=== PATIENT | female | born 1995 | race Caucasian/White ===

== ENCOUNTER 2016-08-07 20:39 | Observation (INO) | payer OTHER ==
[2016-08-07 21:06] VITALS: RESP 18
--- NOTE | 2016-08-07 21:26 | ED ---
Abdominal Pain HPI - General Chief Complaint: Abdominal Pain Stated Complaint: 18 weeks pg/contractions Time Seen by Provider: 08/07/16 21:06 Source: patient, RN notes reviewed Mode of arrival: ambulatory Limitations: no limitations - History of Present Illness Initial Comments: Patient is a 20-year-old female presents emergency room for admission of abdominal pain/contractions. Patient states she is about 18 weeks . Patient is . Patient states she has a cerclage placed. Patient states she had a miscarriage during her first and was diagnosed with cervical incompetence. Patient states she had a cerclage placed with her last 2 pregnancies. Patient states she has 2 full-term pregnancies with no issues during . Patient states she began having contractions earlier this morning. Patient states she while she was at work around 5 PM, her contractions became more frequent. Patient states her contractions every 1-2 minutes. Patient denies vaginal bleeding. Patient denies nausea or vomiting. 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 Patient states she wasn't sure she was going to make it there, so she came to here instead. Patient denies fevers or chills. Patient denies nausea or vomiting. Patient denies chest pain or shortness of breath. He denies pain or burning during urination or frequency in urination. Patient denies history of STDs. - Related Data Home Medications Medication Instructions Recorded Confirmed No Known Home Medications [No 08/07/16 08/07/16 Known Home Medications] Allergies Allergy/AdvReac Type Severity Reaction Status Date / Time No Known Allergies Allergy Verified 08/07/16 23:17 Review of Systems ROS Statement: Those systems with pertinent positive or pertinent negative responses have been documented in the HPI. ROS Other: All systems not noted in ROS Statement are negative. Past Medical History Past Medical History: No Reported History Additional Past Medical History / Comment(s): miscarriage at 20weeks, demise, vag delivery History of Any Multi-Drug Resistant Organisms: None Reported Past Surgical History: No Surgical Hx Reported Additional Past Surgical History / Comment(s): cercalge placed for incompetent cervix/shortening cervix Past Anesthesia/Blood Transfusion Reactions: No Reported Reaction Past Psychological History: Anxiety Smoking Status: Never smoker Past Alcohol Use History: None Reported Past Drug Use History: None Reported - Past Family History Father Family Medical History: No Reported History General Exam - General Exam Comments Initial Comments: Actively having contractions, uncomfortable Limitations: no limitations General appearance: alert, anxious Head exam: Present: atraumatic, normocephalic, normal inspection Eye exam: Present: normal appearance ENT exam: Present: normal exam Neck exam: Present: normal inspection Respiratory exam: Present: normal lung sounds bilaterally. Absent: respiratory distress Cardiovascular Exam: Present: normal rhythm, tachycardia, normal heart sounds External exam: Present: normal external exam Expanded Speculum exam: Present: cervical OS closed (cerclage in place). Absent: vaginal bleeding Extremities exam: Present: normal inspection Back exam: Present: normal inspection Neurological exam: Present: alert, oriented X3, CN II-XII intact, normal gait Psychiatric exam: Present: normal affect, normal mood Skin exam: Present: warm, dry, intact, normal color. Absent: rash Course Vital Signs 08/07/16 08/07/16 08/07/16 20:42 21:04 22:25 Temperature 98.6 F Pulse Rate 116 H 90 90 Respiratory 20 18 18 Rate Blood Pressure 119/71 101/59 147/70 O2 Sat by Pulse 99 99 99 Oximetry Medical Decision Making - Medical Decision Making Patient is a 20-year-old female presents to the emergency room for evaluation of contraction pain. Patient is 18 weeks and is currently having contractions. Patient has a cerclage placed. Case discussed with Dr. Fernandez. Dr. Fernandez advised that we give 0.25 subcu of Tubertaline and IV hydration. Dr. Fernandez came in and evaluated patient. Patient she will be transferred up to labor and delivery for further treatment/evaluation. - Lab Data Result diagrams: 08/07/16 22:20 08/07/16 22:20 Lab Results 08/07/16 08/07/16 08/07/16 Range/Units 22:20 22:20 22:20 WBC 14.5 H (3.8-10.6) k/uL RBC 4.92 (3.80-5.40) m/uL Hgb 13.1 (11.4-16.0) gm/dL Hct 39.0 (34.0-46.0) % MCV 79.2 L (80.0-100.0) fL MCH 26.6 (25.0-35.0) pg MCHC 33.6 (31.0-37.0) g/dL RDW 14.7 (11.5-15.5) % Plt Count 156 (150-450) k/uL Neutrophils % 87 % Lymphocytes % 8 % Monocytes % 4 % Eosinophils % 0 % Basophils % 0 % Neutrophils # 12.6 H (1.3-7.7) k/uL Lymphocytes # 1.1 (1.0-4.8) k/uL Monocytes # 0.5 (0-1.0) k/uL Eosinophils # 0.1 (0-0.7) k/uL Basophils # 0.1 (0-0.2) k/uL Sodium 136 L (137-145) mmol/L Potassium 3.6 (3.5-5.1) mmol/L Chloride 108 H (98-107) mmol/L Carbon Dioxide 20 L (22-30) mmol/L Anion Gap 8 mmol/L BUN 9 (7-17) mg/dL Creatinine 0.46 L (0.52-1.04) mg/dL Est GFR (MDRD) Af Amer >60 (>60 ml/min/1.73 sqM) Est GFR (MDRD) Non-Af >60 (>60 ml/min/1.73 sqM) Glucose 95 (74-99) mg/dL Calcium 8.8 (8.4-10.2) mg/dL Total Bilirubin 0.5 (0.2-1.3) mg/dL AST 24 (14-36) U/L ALT 23 (9-52) U/L Alkaline Phosphatase 60 (38-126) U/L Total Protein 6.0 L (6.3-8.2) g/dL Albumin 3.0 L (3.5-5.0) g/dL Urine Color Light Yellow Urine Appearance Cloudy H (Clear) Urine pH 7.0 (5.0-8.0) Ur Specific [place] 1.015 (1.001-1.035) Urine Protein Negative (Negative) Urine Glucose (UA) Negative (Negative) Urine Ketones Negative (Negative) Urine Blood Small H (Negative) Urine Nitrite Negative (Negative) Urine Bilirubin Negative (Negative) Urine Urobilinogen <2.0 (<2.0) mg/dL Ur Leukocyte Esterase Small H (Negative) Urine RBC 10 H (0-5) /hpf Urine WBC 8 H (0-5) /hpf Ur Squamous Epith Cells <1 (0-4) /hpf Urine Bacteria Rare H (None) /hpf Urine Mucus Rare H (None) /hpf - Radiology Data Radiology results: report reviewed, image reviewed Disposition Clinical Impression: contractions Disposition: ADMITTED IP TO THIS HOSP Condition: Stable Decision Date: 08/07/16
[2016-08-07] MEDS ORDERED: TERBUTALINE 1 MG/ML VIAL SQ STA (21:29)
[2016-08-07] MEDS: SODIUM CHLORIDE 0.9% 1,000 ML IV ONE ×2 (22:25→23:33)
[2016-08-07 22:37] LABS: Basophils # (A) 0.1 k/uL (0-0.2); Basophils % (A) 0 %; CH 27.1; CHCM 34.4; Eosinophils # (A) 0.1 k/uL (0-0.7); Eosinophils % (A) 0 %; HGB 13.1 gm/dL (11.4-16.0); Luc # (Auto) 0.19; Luc % (Auto) 1; Lymphocytes # (A) 1.1 k/uL (1.0-4.8); Lymphocytes % (A) 8 %; MCH 26.6 pg (25.0-35.0); MCHC 33.6 g/dL (31.0-37.0); MCV 79.2 fL (80.0-100.0); Mean Platelet Volume 7.6; Monocytes # (A) 0.5 k/uL (0-1.0); Monocytes % (A) 4 %; Neutrophils # (A) 12.6 k/uL (1.3-7.7); Neutrophils % (A) 87 %; RBC 4.92 m/uL (3.80-5.40); RDW 14.7 % (11.5-15.5); WBC 14.5 k/uL (3.8-10.6); WBC (Perox) 15.53
[2016-08-07 22:44] LABS: Appearance,Urine Cloudy (Clear); Bacteria,Urine Rare /hpf; Bilirubin,Urine Negative (Negative); Glucose,Urine (UA) Negative (Negative); Ketones,Urine Negative (Negative); Leukocyte Esterase,Urine Small (Negative); Mucus,Urine Rare /hpf; Nitrite,Urine Negative (Negative); Particle Count 8863; Protein,Urine Negative (Negative); RBC,Urine 10 /hpf (0-5); Specific Gravity,Urine 1.015 (1.001-1.035); Squamous Epithelial Cell,Urine <1 /hpf (0-4); UA Billing (MACRO vs. MICRO) MICRO; Urobilinogen,Urine <2.0 mg/dL (<2.0); WBC,Urine 8 /hpf (0-5)
[2016-08-07 22:47] LABS: ALT 23 U/L (9-52); AST 24 U/L (14-36); Alkaline Phosphatase 60 U/L (38-126); Anion Gap 8 mmol/L; Blood Urea Nitrogen 9 mg/dL (7-17); Calcium 8.8 mg/dL (8.4-10.2); Carbon Dioxide 20 mmol/L (22-30); Chloride 108 mmol/L (98-107); Glucose 95 mg/dL (74-99); Non-African American GFR(MDRD) >60 (>60 ml/min/1.73 sqM); Potassium 3.6 mmol/L (3.5-5.1); Sodium 136 mmol/L (137-145); Total Bilirubin 0.5 mg/dL (0.2-1.3)
[2016-08-07] MEDS ORDERED: NALOXONE 0.4 MG/ML 1 ML VIAL IV PRN (22:47)
--- NOTE | 2016-08-07 22:53 | US ---
EXAM: US After First Trimester, Transabdominal US , Transvaginal CLINICAL HISTORY: Pain. History of incompetent cervix. TECHNIQUE: Real-time transabdominal and endovaginal obstetrical ultrasound of the maternal pelvis and a second or third trimester with image documentation. Endovaginal imaging was used for better evaluation of the fetus and cervix. COMPARISON: No relevant prior studies available. FINDINGS: Fetus: Single live intrauterine with estimated gestational age of 18w1d (ARIEL 01/07/2017). Heart rate: heart rate 152 bpm. Presentation: Vertex presentation. Placenta: Fundal placental location. No evidence of placenta previa. Amniotic fluid: Amniotic fluid index measures 14.26 cm. Anatomy: anatomy not assessed. BIOMETRICS Gestational age by US: 18 weeks / 1 day (ARIEL 01/07/2017) EFW: 233.67 grams (0 lbs 8 oz) BPD: 4.1 cm, 18weeks / 3 days HC: 15.6 cm, 18 weeks / 4 days AC: 13.2 cm, 18 weeks / 5 days FL: 2.6 cm, 17 weeks / 6 days MATERNAL: Uterus: Gravid uterus. Cervix: There is shortening and funneling of the cervix. Cervical measurements obtained on transvaginal imaging are 0.44, 0.47 and 0.66 cm. There is cervical funneling measuring 0.78 cm in diameter on transvaginal images. Cervical funneling is U-shaped. Free fluid: No free fluid visualized. IMPRESSION: 1. Single live intrauterine measuring 18w1d with heart rate of 152 bpm. 2. Shortening and funneling of the cervix consistent with incompetent cervix. Specifically, cervical length measurements obtained on transvaginal images are 0.44, 0.47 and 0.66 cm. Cervical funneling measures 0.78 cm in diameter on transvaginal images. Recommend OTOLARYNGOLOGY TEACHER consultation for further management. Dr. Fernandez present during transvaginal examination per slubber operator notes. 3. Amniotic fluid within normal limits. [employer] 08/07/16 22:50 Call Doctor Regarding Incompetent cervix , called [facility]arraga
[2016-08-07] MEDS ORDERED: LACTATED RINGERS 2,000 ML IV ONE (22:57)
[2016-08-07] MEDS ORDERED: SODIUM CHLORIDE 0.9% 1,000 ML IV SCH (23:00)
[2016-08-07] MEDS ORDERED: INDOMETHACIN 25 MG CAP PO STA (23:10)
--- NOTE | 2016-08-07 23:10 | P.HPOB ---
History of Present Illness H&P Date: 08/07/16 Chief Complaint: 18 weeks intrauterine , cerclage, contractions The patient is a 20-year-old 4 para 2101 who has had her care in the [place] area. She has a history of a first loss at approximately 20 weeks prompting her obstetrical managers to make a diagnosis of cervical incompetence and cervical cerclage was placed for the following 2 pregnancies which were delivered at term. She had been at rest during those pregnancies but has been allowed to work 8 hour shifts during this . She presents to the emergency room today after having worked a full shift today with significant and painful contractions beginning approximate 5 PM today. She presented to our emergency room as it was closer then traveling to [place]. She has undergone obstetrical ultrasound which demonstrates no findings of any significance. The placenta is fundal and there is no evidence of retroplacental clot. She has no ongoing bleeding but does have ongoing pain and feels contractions on a regular basis. She denies any history of infections and has not been sexually active since placement of the cerclage approximately 4-6 weeks ago. She has not had any trauma and denies any alcohol , drugs, or any other social concerns. Ultrasound demonstrated what appeared to be a bulging lower segment transabdominally but digital cervical examination demonstrates a cerclage to be intact without any significant tension on the cerclage at the time of exam. There is some slight funneling of membranes. Cervical length by transvaginal measurement is 1 cm or less. Obstetrical history 4 para 2102 with 120 week loss in her first followed by 2 successful term deliveries at 38 and 39 weeks respectively following management of the with cerclage. Current statistics are listed above. Her record is not in our possession at this time. This will be retrieved tomorrow. Gynecologic history is unremarkable with no apparent history of infections to include STDs. Review of Systems Review of systems is confined to history of present illness. Past Medical History Past Medical History: No Reported History Additional Past Medical History / Comment(s): miscarriage at 20weeks, demise, vag delivery History of Any Multi-Drug Resistant Organisms: None Reported Past Surgical History: No Surgical Hx Reported Additional Past Surgical History / Comment(s): cercalge placed for incompetent cervix/shortening cervix Past Anesthesia/Blood Transfusion Reactions: No Reported Reaction Past Psychological History: Anxiety Smoking Status: Never smoker Past Alcohol Use History: None Reported Past Drug Use History: None Reported - Past Family History Father Family Medical History: No Reported History Medications and Allergies Home Medications Medication Instructions Recorded Confirmed Type No Known Home Medications [No 08/07/16 08/07/16 History Known Home Medications] Allergies Allergy/AdvReac Type Severity Reaction Status Date / Time No Known Allergies Allergy Verified 08/07/16 21:01 Exam - Vital Signs Vital signs: Vital Signs Temp Pulse Resp BP Pulse Ox 08/07/16 22:25 90 18 147/70 99 08/07/16 21:04 90 18 101/59 99 08/07/16 20:42 98.6 F 116 H 20 119/71 99 Intake and Output 08/07/16 08/07/16 08/08/16 14:59 22:59 06:59 Other: Weight 82.554 kg Patient Weight 08/08/16 06:59 Weight 82.554 kg General, this is a well-developed well-nourished young woman in some discomfort on a regular basis secondary to contractions. Her heart has a regular rhythm and rate without murmur. Her lungs are clear to auscultation bilaterally in all [place]ley. Her abdomen is gravid with the uterus palpable just below the umbilicus. The uterus is soft and nontender. Her extremities are without any cyanosis, clubbing, or edema and are nontender to palpation bilaterally. Digital cervical examination demonstrates the cervical cerclage to be in place ( felt to be a Singleton cerclage). There is no bulging of the lower uterine segment and there is no blood from either the cerclage or the cervix. Results Result Diagrams: 08/07/16 22:20 08/07/16 22:20 Abnormal Lab Results - Last 24 Hours (Table) 08/07/16 08/07/16 08/07/16 Range/Units 22:20 22:20 22:20 WBC 14.5 H (3.8-10.6) k/uL MCV 79.2 L (80.0-100.0) fL Neutrophils # 12.6 H (1.3-7.7) k/uL Sodium 136 L (137-145) mmol/L Chloride 108 H (98-107) mmol/L Carbon Dioxide 20 L (22-30) mmol/L Creatinine 0.46 L (0.52-1.04) mg/dL Total Protein 6.0 L (6.3-8.2) g/dL Albumin 3.0 L (3.5-5.0) g/dL Urine Appearance Cloudy H (Clear) Urine Blood Small H (Negative) Ur Leukocyte Esterase Small H (Negative) Urine RBC 10 H (0-5) /hpf Urine WBC 8 H (0-5) /hpf Urine Bacteria Rare H (None) /hpf Urine Mucus Rare H (None) /hpf Assessment and Plan (1) 18 weeks gestation of Status: Acute (2) contractions Status: Acute (3) Cervical cerclage suture present in second trimester Status: Acute Plan: Patient is to be admitted to observation at this time where she will have aggressive IV hydration. Labs at the time of this dictation are pending and include a CBC as well as urinalysis. Should anything specific be noted on these they will be dealt with independently. She will remain at complete bedrest with a Carrizales catheter in place and in the supine position. I did discuss the case with maternal medicine at [facility] and both he and I feel that there is an indication for short-term tocolyse this using Indocin. I will order 100 mg orally as a loading dose and then 25 mg every 6 hours by mouth for a total of 24 hours. The patient is well aware that if she continues to contract and begins to have any signs or symptoms of infection or significant bleeding, the cerclage will need to be removed and likely precipitate loss of the . I have explained all of the concerns with the patient and she has understood and agrees with the plan as it has been outlined.
[2016-08-07 23:43] VITALS: BP 117/63; PULSE 104; TEMP 97.1; BMI 34.4
[2016-08-08] MEDS: LACTATED RINGERS 1,000 ML IV ONE ×2 (00:35→08:56)
[2016-08-08] MEDS ORDERED: INDOMETHACIN 25 MG CAP PO SCH (06:00)
[2016-08-08 07:20] LABS: CH 26.6; CHCM 33.7; HCT 33.9 % (34.0-46.0); HDW 3.09; HGB 11.3 gm/dL (11.4-16.0); MCH 26.5 pg (25.0-35.0); MCHC 33.3 g/dL (31.0-37.0); MCV 79.5 fL (80.0-100.0); Mean Platelet Volume 8.1; RBC 4.26 m/uL (3.80-5.40); RDW 14.6 % (11.5-15.5)
--- NOTE | 2016-08-08 08:45 | P.PN ---
Subjective Principal diagnosis: 18 weeks, contractions, cerclage in place The patient reports this morning no sense of any contractions and no ongoing pain or pressure. She does report normal movement. She does however have some vaginal bleeding which she does not have a sense of at this time. She additionally does report that she feels hungry. Objective - Vital Signs Vital signs: Vital Signs Temp 97.1 F L 08/07/16 23: Pulse 104 H 08/07/16 23:17 Resp 18 08/07/16 23:17 BP 117/63 08/07/16 23:17 Pulse Ox 99 08/07/16 23:17 Intake & Output 08/07/16 08/08/16 08/08/16 18:59 06:59 18:59 Output Total 600 Balance -600 Weight 82.554 kg Output: Urine 600 Other: Voiding Method Indwelling Catheter - Exam In general, this is a well-developed, well-nourished young woman in no acute distress. It was necessary to wake her from sleep this morning for discussion. Her abdomen is gravid, nondistended, soft, nontender, with the uterus palpable just below the umbilicus. Her extremities are without any cyanosis, clubbing, or edema and are nontender to palpation. Digital cervical examination is deferred this morning. There is some ongoing bleeding which is fairly light in nature at this time. - Labs CBC & Chem 7: 08/08/16 07:07 08/07/16 22:20 Labs: Abnormal Lab Results - Last 24 Hours (Table) 08/08/16 Range/Units 07:07 WBC 13.0 H (3.8-10.6) k/uL Hgb 11.3 L (11.4-16.0) gm/dL Hct 33.9 L (34.0-46.0) % MCV 79.5 L (80.0-100.0) fL Plt Count 140 L (150-450) k/uL Assessment and Plan (1) 18 weeks gestation of Status: Acute (2) contractions Status: Acute (3) Cervical cerclage suture present in second trimester Status: Acute Plan: The patient has had complete resolution of her contractions at this time. I will advance her diet to regular but continue with IV fluids as well as the Indocin through a total of 24 hours as previously noted. Additionally, given her equivocal urinalysis last night and, while the urine culture is pending, I will begin her on antibiotics to cover for urinary tract infection. I have ordered Bactrim DS to be taken twice daily for total of 5 days pending the outcome of the culture. Continue cautious observation at this time.
[2016-08-08] MEDS: SULFAMETHOX-TMP 800-160MG 1 EACH TAB PO SCH ×2 (10:32→20:39)
[2016-08-08] MEDS: INDOMETHACIN 25 MG CAP PO SCH ×2 (12:28→19:13)
[2016-08-09] MEDS: INDOMETHACIN 25 MG CAP PO SCH ×2 (00:16→05:48)
--- NOTE | 2016-08-09 08:06 | P.DS ---
Providers Date of admission: 08/07/16 22:47 Expected date of discharge: 08/09/16 Attending physician: Alex Fernandez Primary care physician: Stated None Hospital Course: This is a 20-year-old white female 4 para 2012 EDC 03/11/2017 who presented with a history of cramping. Patient's care has been given elsewhere, a cerclage has been placed on the cervix by another provider for history of incompetent cervix. Please see Dr. Stauffer dictated history and physical for details. On examination the cervix is long and closed, with not at 12:00. Ultrasound revealed a viable intrauterine , cervical length is said to be 1.5 cm. Indomethacin was given for 24 hours and uterine cramping resolved. Urinalysis suggested an early bladder infection, Dr. Dickey has started the patient on Bactrim DS, 2 doses have been given. Fetus is active. Patient was admitted for observation over 24 hours. This morning she feels well , no cramping, no pressure, very scant residual dark blood with wiping. No fresh bleeding. No bladder symptoms. Patient has showered, is tolerating regular diet. She will be discharged home at this time in stable condition. I' ve asked her to follow-up with her doctor next week, she already has an appointment scheduled for Friday of next week. I have cautioned her no intercourse, no heavy lifting, minimal activities at home. I have given her prescription for Bactrim DS to continue for 4 additional days, 1 pill twice daily. She will stay on her vitamin daily. Follow-up with her own physician in the high-risk service as instructed. Plan - Discharge Summary Discharge Medication List No Known Home Medications [No Known Home Medications] 08/07/16 [History] Follow up Appointment(s)/Referral(s): None,Stated [Primary Care Provider] - 1-2 days Discharge Disposition: HOME SELF-CARE
[2016-08-09] MEDS: SULFAMETHOX-TMP 800-160MG 1 EACH TAB PO SCH (08:34)
== END 2016-08-09 09:30 | disposition home or self-care (01) ==
LOC: EC 20:39 → INTOOBSV 22:47 → 4FBP 22:47
PROVIDERS: ADMIT Obstetrics & Gynecology; ATTEND Obstetrics & Gynecology
DX: O60.02 Preterm labor without delivery, second trimester (principal); Z3A.18 18 weeks gestation of pregnancy; O34.32 Maternal care for cervical incompetence, second trimester
CPT/HCPCS: 96360; 99285; 36415; 80053; 85025; 85027; 81001; 87086; 76805; G0378 ×3; 96361

== ENCOUNTER 2018-03-11 15:04 | Emergency (ER) | payer OTHER ==
[2018-03-11 15:38] VITALS: TEMP 98.1
--- NOTE | 2018-03-11 16:02 | ED ---
Abdominal Pain HPI - General Chief Complaint: Abdominal Pain Stated Complaint: abd pain Time Seen by Provider: 03/11/18 15:47 Source: patient, RN notes reviewed, old records reviewed Mode of arrival: ambulatory Limitations: no limitations - History of Present Illness Initial Comments: This is a 22-year-old female the ER for evaluation of abdominal pain. Patient is suprapubic epigastric abdominal pain and cramping 3 days. Patient denies vaginal bleeding or discharge, denies dysuria, denies any bowel issues. No fevers. Patient denies . States her periods have recently been irregular. No other complaints MD Complaint: abdominal pain -: days(s) (5) Location: periumbilical, suprapubic Radiation: suprapubic Migration to: suprapubic Severity: moderate Severity scale (1-10): 4 Quality: cramping Consistency: constant Improves With: nothing Worsens With: nothing Context: other (Abnormal periods) Associated Symptoms: nausea - Related Data Home Medications Medication Instructions Recorded Confirmed No Known Home Medications 08/07/16 03/11/18 Allergies Allergy/AdvReac Type Severity Reaction Status Date / Time amoxicillin Allergy Itching Verified 03/11/18 16:15 Review of Systems ROS Statement: Those systems with pertinent positive or pertinent negative responses have been documented in the HPI. ROS Other: All systems not noted in ROS Statement are negative. Past Medical History Past Medical History: No Reported History Additional Past Medical History / Comment(s): miscarriage at 20weeks, demise, vag delivery History of Any Multi-Drug Resistant Organisms: None Reported Past Surgical History: No Surgical Hx Reported Additional Past Surgical History / Comment(s): cercalge placed for incompetent cervix/shortening cervix Past Anesthesia/Blood Transfusion Reactions: No Reported Reaction Past Psychological History: Anxiety Smoking Status: Never smoker Past Alcohol Use History: None Reported Past Drug Use History: None Reported - Past Family History Father Family Medical History: No Reported History General Exam Limitations: no limitations General appearance: alert, in no apparent distress Head exam: Present: atraumatic, normocephalic, normal inspection Eye exam: Present: normal appearance, PERRL, EOMI. Absent: scleral icterus, conjunctival injection, periorbital swelling ENT exam: Present: normal exam, mucous membranes moist Neck exam: Present: normal inspection. Absent: tenderness, meningismus, lymphadenopathy Respiratory exam: Present: normal lung sounds bilaterally. Absent: respiratory distress, wheezes, rales, rhonchi, stridor Cardiovascular Exam: Present: regular rate, normal rhythm, normal heart sounds. Absent: systolic murmur, diastolic murmur, rubs, gallop, clicks GI/Abdominal exam: Present: soft, normal bowel sounds. Absent: distended, tenderness, guarding, rebound, rigid Extremities exam: Present: normal inspection, full ROM, normal capillary refill. Absent: tenderness, pedal edema, joint swelling, calf tenderness Back exam: Present: normal inspection Neurological exam: Present: alert, oriented X3, CN II-XII intact Psychiatric exam: Present: normal affect, normal mood Skin exam: Present: warm, dry, intact, normal color. Absent: rash Course Vital Signs 03/11/18 03/11/18 15:36 17:47 Temperature 98.1 F Pulse Rate 74 84 Respiratory 18 16 Rate Blood Pressure 109/73 115/78 O2 Sat by Pulse 98 98 Oximetry - Reevaluation(s) Reevaluation #1: 03/11/18 18:13 Medical record is reviewed Reevaluation #2: 03/11/18 18:13 Patient given nausea medication Medical Decision Making - Medical Decision Making 22 female the ER with nonspecific abdominal pain, no abdominal tenderness on exam, no vaginal discharge in his normal, ultrasound x-ray negative. Patient can be discharged - Lab Data Lab Results 03/11/18 03/11/18 Range/Units 16:07 16:07 Urine Color Yellow Urine Appearance Clear (Clear) Urine pH 7.5 (5.0-8.0) Ur Specific [place] 1.023 (1.001-1.035) Urine Protein Trace H (Negative) Urine Glucose (UA) Negative (Negative) Urine Ketones Negative (Negative) Urine Blood Moderate H (Negative) Urine Nitrite Negative (Negative) Urine Bilirubin Negative (Negative) Urine Urobilinogen 2.0 (<2.0) mg/dL Ur Leukocyte Esterase Trace H (Negative) Urine RBC 17 H (0-5) /hpf Urine WBC 2 (0-5) /hpf Ur Squamous Epith Cells 2 (0-4) /hpf Urine Bacteria Rare H (None) /hpf Urine Mucus Few H (None) /hpf Urine HCG, Qual Not Detected (Not Detectd) - Radiology Data Radiology results: report reviewed (X-ray negative for acute disease ultrasound pelvis negative foir acute disease), image reviewed Disposition Clinical Impression: Abdominal pain Disposition: HOME SELF-CARE Condition: Good Instructions: Abdominal Pain (ED) Is patient prescribed a controlled substance at d/c from ED?: No Referrals: Imani Berman MD [Primary Care Provider] - 1-2 days
[2018-03-11 16:40] LABS: Appearance,Urine Clear (Clear); Bacteria,Urine Rare /hpf; Bilirubin,Urine Negative (Negative); Blood,Urine Moderate (Negative); Color,Urine Yellow; Glucose,Urine (UA) Negative (Negative); Ketones,Urine Negative (Negative); Leukocyte Esterase,Urine Trace (Negative); Mucus,Urine Few /hpf; Nitrite,Urine Negative (Negative); PH, Urine 7.5 (5.0-8.0); Protein,Urine Trace (Negative); RBC,Urine 17 /hpf (0-5); Specific Gravity,Urine 1.023 (1.001-1.035); Squamous Epithelial Cell,Urine 2 /hpf (0-4); WBC,Urine 2 /hpf (0-5)
[2018-03-11 17:49] VITALS: BP 115/78; PULSE 84; RESP 16
[2018-03-11] MEDS ORDERED: IBUPROFEN 800 MG TAB PO STA (18:15)
[2018-03-11] MEDS ORDERED: ONDANSETRON ODT 4 MG TAB PO STA (18:15)
[2018-03-11] MEDS ORDERED: ONDANSETRON 4 MG ODT STARTER PACK 2 TAB BTL PO STA (18:15)
--- NOTE | 2018-03-11 18:16 | US ---
EXAMINATION TYPE: US transvaginal DATE OF EXAM: 03/11/2018 COMPARISON: NONE CLINICAL HISTORY: Pain. Pain TECHNIQUE: Transvaginal (TV). Transabdominal sonographic images of the pelvis were acquired. Trans vaginal sonographic images were medically necessary to better assess the following anatomy: EXAM MEASUREMENTS: Uterus: 836 x 5.3 x 5.8 cm Endometrial Stripe: 0.7m Right Ovary: 2.5 x 2.4 x 1.9 cm 1. Uterus: Anteverted wnl 2. Endometrium: wnl 3. Right Ovary: wnl 4. Left Ovary: Obscured by overlying bowel gas Spectral, color and waveform doppler imaging shows good arterial and venous flow within the right o vary no evidence for right ovarian torsion. 5. Bilateral Adnexa: wnl 6. Posterior cul-de-sac: wnl IMPRESSION: No evidence of ovarian torsion. Normal uterus and endometrium.
--- NOTE | 2018-03-11 18:20 | XR ---
EXAMINATION TYPE: XR abdomen acute w cxr DATE OF EXAM: 03/11/2018 COMPARISON: 03/25/2016 chest x-ray HISTORY: Abdominal pain TECHNIQUE: Chest x-ray with supine and upright abdomen FINDINGS: Heart and mediastinum are normal. Lungs are clear. Diaphragm is normal. Bony thorax appears normal. B owel gas pattern is normal. There is no sign of intestinal obstruction or pneumoperitoneum. Fecal pat tern is normal. There are no pathologic calcifications.. IMPRESSION: Chest. Nonacute abdomen. Chest is stable compared to old exam.
== END 2018-03-11 19:20 | disposition home or self-care (01) ==
LOC: EC 15:04
DX: R10.33 Periumbilical pain (principal); R11.0 Nausea; Z88.0 Allergy status to penicillin
CPT/HCPCS: 74022; 76830; 81001; 81025; 87086; 93976; 99285

== ENCOUNTER 2019-05-09 10:57 | Outpatient (CLI) | payer OTHER ==
[2019-05-09 12:16] VITALS: BP 128/76; PULSE 104; RESP 16; TEMP 98.3
--- NOTE | 2019-05-13 16:36 | P.MSEPDOC ---
Presenting Problems - Arrival Data Date of Arrival on Unit: 05/09/19 Time of Arrival on Unit: 10:57 Mode of Transport: Ambulatory - Complaint OB-Reason for Admission/Chief Complaint: Possible Onset of Labor Comment: contractions since last night, mostly when walking Medical History - Information : 5 Para: 3 Term: 2 : 1 Abortions: Spontaneous or Elective: 1 Number of Living Children: 2 - Gestational Age Gestational Age by ARIEL (wks/days): 34 Weeks and 0 Days - History Complications: Prior Comment: DOM sees Dr. Xavier/Dileep Ardon Review of Systems - Review of Systems Constitutional: No problems Breast: No problems ENT: No problems Cardiovascular: No problems Respiratory: No problems Gastrointestinal: No problems Genitourinary: No problems Musculoskeletal: No problems Neurological: No problems Skin: No problems Vital Signs - Temperature Temperature: 98.3 F Temperature Source: Oral - Pulse Right Brachial Pulse Rate: 104 Pulse Assessment Method: Automatic Cuff - Respirations Respiratory Rate: 16 Oxygen Delivery Method: Room Air O2 Sat by Pulse Oximetry: 98 - Blood Pressure Right Arm Blood Pressure: 128/76 Blood Pressure Mean: 93 Blood Pressure Source: Automatic Cuff Medical Screen Scoring (Pre) - Cervical Exam Dilation: 0 cm = 0 - Uterine Contractions Frequency: N/A Duration: N/A Intensity: N/A - Maternal Vital Signs Maternal Temperature: N/A Signs of Preeclampsia: N/A Maternal Respirations: N/A - Maternal Trauma Maternal Trauma: N/A - Assessment - Baby A Baseline FHR: 135 Heart Rate - NICHD Category: Category I (Normal) = 0 NST: Reactive Position: N/A Station: N/A - Total Score - Baby A Total Score - Baby A: 0 - Total Score - Baby B Total Score - Baby B: 0 - Total Score - Baby C Total Score - Baby C: 0 - Level of Risk - Baby A Level of Risk - Baby A: Low (0-5) - Level of Risk - Baby B Level of Risk - Baby B: Low (0-5) - Level of Risk - Baby C Level of Risk - Baby C: Low (0-5) Physician Notification (Pre) - Physician Notified Physician Notified Date: 05/09/19 Physician Notified Time: 11:40 New Order Received: Yes (discharge with instruction) - Notification Comment Comment: Pt told to contact her physician with symptoms to receive further instructions for follow up Disposition - Disposition OB Disposition: Triage, Discharge to home, Written follow up instructions reviewed Discharge Date: 05/09/19 Discharge Time: 11:45 I agree with the RN Medical Screening Exam: Yes Risk & Benefit of care provided described in d/c instruction: Yes Diagnosis: FALSE LABOR BEFORE 37 COMPLETED WEEKS OF GEST, THIRD TRI
== END 2019-05-09 11:45 | disposition home or self-care (01) ==
LOC: FBPOP 10:57
PROVIDERS: ATTEND Obstetrics & Gynecology
DX: O47.03 False labor before 37 completed weeks of gestation, third trimester (principal); Z3A.34 34 weeks gestation of pregnancy
CPT/HCPCS: 59025; G0463; 99213

== ENCOUNTER 2019-06-10 22:06 | Outpatient (CLI) | payer OTHER ==
[2019-06-10 23:01] VITALS: BP 110/69; PULSE 89; RESP 15; TEMP 97.9
--- NOTE | 2019-06-24 09:54 | P.MSEPDOC ---
Presenting Problems - Arrival Data Date of Arrival on Unit: 06/10/19 Time of Arrival on Unit: 22:06 Mode of Transport: Ambulatory - Complaint OB-Reason for Admission/Chief Complaint: Other Comment: feet swelling Medical History - Information : 5 Para: 2 Term: 2 : 0 Abortions: Spontaneous or Elective: 2 Number of Living Children: 2 - Gestational Age Gestational Age by ARIEL (wks/days): 38 Weeks and 4 Days Review of Systems - Review of Systems Constitutional: No problems Breast: No problems ENT: No problems Cardiovascular: No problems Respiratory: No problems Gastrointestinal: No problems Genitourinary: No problems Musculoskeletal: No problems Neurological: No problems Skin: No problems Vital Signs - Temperature Temperature: 97.9 F Temperature Source: Temporal Artery Scan - Pulse Pulse Oximetery Pulse Rate: 89 Pulse Assessment Method: Pulse Oximetry - Respirations Respiratory Rate: 15 Oxygen Delivery Method: Room Air O2 Sat by Pulse Oximetry: 98 - Blood Pressure Right Arm Blood Pressure: 110/69 Blood Pressure Mean: 82 Blood Pressure Source: Automatic Cuff Medical Screen Scoring (Pre) - Cervical Exam Dilation: 1-3 cm = 1 Membranes: Intact - Uterine Contractions Frequency: N/A Duration: N/A Intensity: N/A - Maternal Vital Signs Maternal Temperature: N/A Maternal Blood Pressure: N/A Signs of Preeclampsia: N/A Maternal Respirations: N/A - Maternal Trauma Maternal Trauma: N/A - Assessment - Baby A Baseline FHR: 125 Heart Rate - NICHD Category: Category I (Normal) = 0 NST: Reactive Position: N/A Station: N/A - Total Score - Baby A Total Score - Baby A: 1 - Total Score - Baby B Total Score - Baby B: 1 - Total Score - Baby C Total Score - Baby C: 1 - Level of Risk - Baby A Level of Risk - Baby A: Low (0-5) - Level of Risk - Baby B Level of Risk - Baby B: Low (0-5) - Level of Risk - Baby C Level of Risk - Baby C: Low (0-5) Physician Notification (Pre) - Physician Notified Physician Notified Date: 06/10/19 Physician Notified Time: 22:43 New Order Received: Yes Disposition - Disposition OB Disposition: Physician follow up in office, Discharge to home, Written follow up instructions reviewed Discharge Date: 06/10/19 Discharge Time: 22:50 I agree with the RN Medical Screening Exam: Yes Risk & Benefit of care provided described in d/c instruction: Yes Diagnosis: RELATED CONDITIONS, UNSPECIFIED, THIRD TRIMESTER
== END 2019-06-10 22:50 | disposition home or self-care (01) ==
LOC: FBPOP 22:06
PROVIDERS: ATTEND Obstetrics & Gynecology
DX: O26.93 Pregnancy related conditions, unspecified, third trimester (principal); Z3A.38 38 weeks gestation of pregnancy
CPT/HCPCS: 59025; G0463; 99213

== ENCOUNTER 2019-06-15 15:56 | Outpatient (CLI) | payer OTHER ==
[2019-06-15 16:43] VITALS: BP 135/64; PULSE 115; RESP 16; TEMP 97.2
--- NOTE | 2019-06-20 11:39 | P.MSEPDOC ---
Presenting Problems - Arrival Data Date of Arrival on Unit: 06/15/19 Time of Arrival on Unit: 15:58 Mode of Transport: Ambulatory - Complaint OB-Reason for Admission/Chief Complaint: Possible Onset of Labor Comment: Contrx since 1230, membranes swept at [address] Xavier Medical History - Information : 5 Para: 3 Term: 2 : 1 Abortions: Spontaneous or Elective: 1 Number of Living Children: 2 - Gestational Age Gestational Age by ARIEL (wks/days): 39 Weeks and 2 Days Review of Systems - Review of Systems Constitutional: No problems Breast: No problems ENT: No problems Cardiovascular: No problems Respiratory: No problems Gastrointestinal: No problems Genitourinary: No problems Musculoskeletal: No problems Neurological: No problems Skin: No problems Vital Signs - Temperature Temperature: 97.2 F Temperature Source: Temporal Artery Scan - Pulse Right Sitting Brachial Pulse Rate: 115 Pulse Assessment Method: Automatic Cuff - Respirations Respiratory Rate: 16 Oxygen Delivery Method: Room Air - Blood Pressure Right Arm Sitting Blood Pressure: 135/64 Blood Pressure Mean: 87 Blood Pressure Source: Automatic Cuff Medical Screen Scoring (Pre) - Cervical Exam Dilation: 1-3 cm = 1 Effacement: More than 50% = 2 Membranes: Intact - Uterine Contractions Frequency: > or = 36 weeks =2 Duration: > 40 seconds = 2 Intensity: N/A - Maternal Vital Signs Maternal Temperature: N/A Maternal Blood Pressure: N/A Signs of Preeclampsia: N/A Maternal Respirations: N/A - Maternal Trauma Maternal Trauma: N/A - Assessment - Baby A Baseline FHR: 145 Heart Rate - NICHD Category: Category I (Normal) = 0 NST: Reactive Position: N/A Station: N/A - Total Score - Baby A Total Score - Baby A: 7 - Total Score - Baby B Total Score - Baby B: 7 - Total Score - Baby C Total Score - Baby C: 7 - Level of Risk - Baby A Level of Risk - Baby A: Medium (6-9) - Level of Risk - Baby B Level of Risk - Baby B: Medium (6-9) - Level of Risk - Baby C Level of Risk - Baby C: Medium (6-9) Physician Notification (Pre) - Physician Notified Physician Notified Date: 06/15/19 Physician Notified Time: 16:25 New Order Received: Yes - Notification Comment Comment: Spk c\Dr. Fernandez, present on unit, strip reviewed, advsd pt arrived at [facility] bec she did not think she had time to drive to HF, 3cm in office today, 3.5cm now. States to d/c, pt to drive directly to HF. Disposition - Disposition OB Disposition: Transfer to other dept./facility, Written follow up instructions reviewed Discharge Date: 06/15/19 Discharge Time: 16:33 I agree with the RN Medical Screening Exam: Yes Risk & Benefit of care provided described in d/c instruction: Yes Diagnosis: FALSE LABOR AT OR AFTER 37 COMPLETED WEEKS OF GESTATION
== END 2019-06-15 16:33 | disposition home or self-care (01) ==
LOC: FBPOP 15:56
PROVIDERS: ATTEND Obstetrics & Gynecology
DX: O47.1 False labor at or after 37 completed weeks of gestation (principal); Z3A.39 39 weeks gestation of pregnancy
CPT/HCPCS: 59025; G0463; 99213

== ENCOUNTER → 2020-03-28 | Outpatient (CLI) | payer OTHER ==
--- NOTE | 2020-03-28 16:47 | US ---
EXAMINATION TYPE: US extremity nonvasculr ltd LT DATE OF EXAM: 03/28/2020 COMPARISON: NONE CLINICAL HISTORY: S89.92XA Injury L leg. Left lower leg pain and bruising fell on kids toys. No abnormalities visualized in area of concern. IMPRESSION: 1. Soft tissue ultrasound left calf region is unremarkable.
== END | disposition home or self-care (01) ==
LOC: RADUSWWP 15:24
PROVIDERS: ATTEND Family Medicine
DX: S89.92XA Unspecified injury of left lower leg, initial encounter (principal)

== ENCOUNTER 2020-07-01 16:51 | Emergency (ER) | payer OTHER ==
[2020-07-01 16:56] VITALS: BP 115/70; PULSE 106; TEMP 98.2
[2020-07-01 18:57] VITALS: RESP 18
--- NOTE | 2020-07-01 19:00 | ED ---
URI HPI - General Chief Complaint: Upper Respiratory Infection Stated Complaint: Covid+, ROLF Time Seen by Provider: 07/01/20 18:38 Source: patient, RN notes reviewed Mode of arrival: ambulatory Limitations: no limitations - History of Present Illness Initial Comments: Well-appearing white female patient in no acute distress, alert and oriented 4. Patient states has been sick since Friday, tested yesterday and [facility] and is covid+. Patient denies fevers, nausea or vomiting or diarrhea. No medical history, no medications on a daily basis. Patient states has 3 children at home. oldest child had a fever for one day lsat week which resolved. MD Complaint: cough, nasal congestion -: days(s) (5) Consistency: constant Improves With: rest Worsens With: activity Context: other (covid + yesterday) Associated Symptoms: nasal congestion, shortness of breath (loss of taste and smell) Treatments Prior to Arrival: none - Related Data Home Medications Medication Instructions Recorded Confirmed No Known Home Medications 08/07/16 06/15/19 Allergies Allergy/AdvReac Type Severity Reaction Status Date / Time No Known Allergies Allergy Verified 07/01/20 16:55 Review of Systems ROS Statement: Those systems with pertinent positive or pertinent negative responses have been documented in the HPI. ROS Other: All systems not noted in ROS Statement are negative. Past Medical History Past Medical History: No Reported History Additional Past Medical History / Comment(s): miscarriage at 20weeks, demise, vag delivery History of Any Multi-Drug Resistant Organisms: None Reported Past Surgical History: No Surgical Hx Reported Additional Past Surgical History / Comment(s): cercalge placed for incompetent cervix/shortening cervix Past Anesthesia/Blood Transfusion Reactions: No Reported Reaction Past Psychological History: Anxiety Smoking Status: Never smoker Past Alcohol Use History: None Reported Past Drug Use History: None Reported - Past Family History Father Family Medical History: No Reported History General Exam Limitations: no limitations General appearance: alert, in no apparent distress Head exam: Present: atraumatic, normocephalic, normal inspection Eye exam: Present: normal appearance, PERRL, EOMI. Absent: scleral icterus, conjunctival injection, periorbital swelling ENT exam: Present: normal exam, mucous membranes moist Neck exam: Present: normal inspection. Absent: tenderness, meningismus, lymphadenopathy Respiratory exam: Present: normal lung sounds bilaterally. Absent: respiratory distress, wheezes, rales, rhonchi, stridor Cardiovascular Exam: Present: tachycardia, normal heart sounds. Absent: JVD GI/Abdominal exam: Present: soft, normal bowel sounds. Absent: distended, tenderness, guarding, rebound, rigid Extremities exam: Present: normal inspection, full ROM, normal capillary refill. Absent: tenderness, pedal edema, joint swelling, calf tenderness Back exam: Present: normal inspection Neurological exam: Present: alert, oriented X3, CN II-XII intact Psychiatric exam: Present: normal affect, normal mood Skin exam: Present: warm, dry, intact, normal color. Absent: rash Course Vital Signs 07/01/20 07/01/20 16:53 18:51 Temperature 98.2 F Pulse Rate 106 H Respiratory 22 18 Rate Blood Pressure 115/70 O2 Sat by Pulse 100 Oximetry Medical Decision Making - Medical Decision Making Patient directed to continue to take vitamin D, vitamin C, and increase fluid intake. Patient well-appearing, in no acute respiratory distress ,encouraged to come back with worsening shortness of breath or decreased urine output. Disposition Clinical Impression: Viral illness Disposition: HOME SELF-CARE Condition: Good Additional Instructions: Take vitamin D and vitamin C at home, increase fluid intake. Tylenol and Motrin as needed for fevers or body aches. Is patient prescribed a controlled substance at d/c from ED?: No Referrals: Chin Hill DO [Primary Care Provider] - 1-2 days Time of Disposition: 19:00
== END 2020-07-01 19:36 | disposition home or self-care (01) ==
LOC: EC 16:51
DX: U07.1 COVID-19 (principal); F41.9 Anxiety disorder, unspecified
CPT/HCPCS: 99284

== ENCOUNTER → 2020-11-02 | Outpatient (CLI) | payer OTHER ==
--- NOTE | 2020-11-02 16:50 | XR ---
EXAMINATION TYPE: XR tibia fibula LT DATE OF EXAM: 11/02/2020 CLINICAL HISTORY: Pain and bruising after injury. TECHNIQUE: Two views of the left leg are obtained. COMPARISON: None. FINDINGS: There is no acute fracture or dislocation seen in the left tibia or fibula. The left knee and ankle joints appear within normal limits. The overlying soft tissue appears unremarkable. IMPRESSION: There is no acute fracture or dislocation seen in the left tibia or fibula.
== END | disposition home or self-care (01) ==
LOC: LABWHC1 15:17
PROVIDERS: ATTEND Emergency Medicine
DX: S80.12XA Contusion of left lower leg, initial encounter (principal); N91.2 Amenorrhea, unspecified; X58.XXXA Exposure to other specified factors, initial encounter
CPT/HCPCS: 81025

== ENCOUNTER → 2021-12-28 | Outpatient (CLI) | payer OTHER ==
--- NOTE | 2021-12-29 10:37 | XR ---
EXAMINATION TYPE: XR thoracic spine 2V DATE OF EXAM: 12/28/2021 3:41 PM INDICATION: Patient age:Female; 26 years old; Reason for study: M54.6 Pain thoracic spine; COMPARISON: None TECHNIQUE: 2 views of the thoracic spine in Frontal and lateral projections. FINDINGS: No evidence of acute fracture. There is no evidence of disk space narrowing or loss of vertebral bod y height. There is normal alignment of the thoracic vertebral bodies. Mild multilevel disc degenerati on changes with osteophyte formation. IMPRESSION: No acute osseous pathology. Mild osteoarthrosis throughout the visualized thoracic spine.
== END | disposition home or self-care (01) ==
LOC: RADXRMAIN 15:19
PROVIDERS: ATTEND Nurse Practitioner Family
DX: M47.814 Spondylosis without myelopathy or radiculopathy, thoracic region (principal)
CPT/HCPCS: 72070